=== PATIENT | female | born 1960 | race American Indian/Alaskan Native ===

== ENCOUNTER 2018-03-16 10:13 | Outpatient (CLI) | payer OTHER ==
--- NOTE | 2018-03-16 10:59 | Mammography Report ---
Bilateral mammogram: Compared to 06/22/14. CAD study utilized. Findings: Predominance of adipose tissue bilaterally. Focal new asymmetry outer posterior right breast and inner anterior left breast. No microcalcification. Normal axilla. Impression: Focal new asymmetry right and left breast. Recommend spot compression and if necessary sonographic examination. BI-RADS CATEGORY: 0 = Needs additional imaging evaluation ACR BI-RADS MAMMOGRAPHIC CODES: 0 = Needs additional imaging evaluation; 1 = Negative; 2 = Benign; 3 = Probably benign; 4 = Suspicious; 5 = Malignant; 6 = Known biopsy-proven malignancy COMMENT: 1. Dense breast tissue, i.e., adenosis, fibrocystic changes, etc., may obscure an underlying neoplasm. 2. Approximately 10% of cancers are not detected with mammography. 3. A negative mammography report should not delay biopsy if a clinically suspicious mass is present. COMMENT: Patient follow-up letters are generated in [employer].
== END 2018-03-16 10:14 | disposition home or self-care (01) ==
LOC: SPVWC 10:13
PROVIDERS: ATTEND Family Medicine
DX: Z12.31 Encounter for screening mammogram for malignant neoplasm of breast (principal)
CPT/HCPCS: 77067

== ENCOUNTER 2018-03-25 13:36 | Outpatient (CLI) | payer OTHER ==
--- NOTE | 2018-03-25 16:23 | Ultrasound Report ---
BILATERAL DIGITAL DIAGNOSTIC MAMMOGRAM and RIGHT BREAST ULTRASOUND: 03/25/18 13:36:00 CLINICAL: Recalled for bilateral asymmetries. COMPARISON:03/16/18 screening FINDINGS: Lateralmedial and spot compression CC views of the left breast are negative. Right ML, rolled CC and spot compression CC views were performed. Partial effacement of asymmetry on the spot view. The other views are negative. Ultrasound of the right breast (including all four quadrants and the retroareolar area) was performed. A benign cyst at 9 o'clock 3 cm from the nipple measures 8 x 5 x 5 mm. A benign intramammary lymph node at 9:30 o'clock 10 cm from the nipple. No solid mass or suspicious shadowing. IMPRESSION: A single benign cyst of the right breast and otherwise negative right breast.Negative left breast. BI-RADS CATEGORY: 2 - - Benign RECOMMENDATION: Routine mammographic screening in one year. ACR BI-RADS MAMMOGRAPHIC CODES: 0 = Needs additional imaging evaluation; 1 = Negative; 2 = Benign; 3 = Probably benign; 4 = Suspicious; 5 = Malignant; 6 = Known biopsy-proven malignancy COMMENT: 1. Dense breast tissue, i.e., adenosis, fibrocystic changes, etc., may obscure an underlying neoplasm. 2. Approximately 10% of cancers are not detected with mammography. 3. A negative mammography report should not delay biopsy if a clinically suspicious mass is present. COMMENT: Patient follow-up letters are generated via our [employer] application.
== END 2018-03-25 13:37 | disposition home or self-care (01) ==
LOC: MAMMO 13:36
PROVIDERS: ATTEND Family Medicine
DX: N60.01 Solitary cyst of right breast (principal)
CPT/HCPCS: 77066